=== PATIENT | female | born 1965 | race American Indian/Alaskan Native ===

== ENCOUNTER 2019-04-29 04:48 | Emergency (ER) | payer BC ==
[2019-04-29] MEDS ORDERED: dexAMETHasone 20 MG/5 ML VIAL ONE (05:09)
[2019-04-29] MEDS ORDERED: FAMOTIDINE 20 MG/2 ML INJ IV ONE ×2 (05:10→05:29)
[2019-04-29] MEDS ORDERED: diphenhydrAMINE 50 MG/ML VIAL ONE (05:11)
[2019-04-29] MEDS ORDERED: SODIUM CHLORIDE 0.45% 1000 ML 1,000 ML IV ONE (05:12)
[2019-04-29] MEDS ORDERED: dexAMETHasone 20 MG/5 ML VIAL IV ONE (05:27)
[2019-04-29] MEDS ORDERED: diphenhydrAMINE 50 MG/ML VIAL IV ONE (05:28)
--- NOTE | 2019-04-29 05:29 | Emergency Department Report ---
ED General Adult HPI - General Chief complaint: Allergic Reaction Stated complaint: LISINOPRIL REACTION Time Seen by Provider: 04/29/19 05:24 Source: patient Mode of arrival: Ambulatory Limitations: No Limitations - History of Present Illness Initial comments: The patient presents to the emergency department with a chief complaint of her upper lip swelling that started 1 day ago. Patient states she started lisinopril 2 weeks ago. Patient denies any shortness of breath, difficulty breathing, difficulty swallowing, wheezing. Patient states is never has happened to her before and denies family history of angioedema. She denies chest pain, headache, shortness of breath. Patient is able to answer questions and 4 sentences without any difficulty -: days(s) (1) Severity scale (0 -10): 0 Consistency: constant Improves with: none Worsens with: none Associated Symptoms: denies other symptoms Treatments Prior to Arrival: none - Related Data Previous Rx's Medication Instructions Recorded Last Taken Type Naproxen 500 mg PO Q12H PRN #9 tablet 04/22/19 Unknown Rx Famotidine [Pepcid] 40 mg PO QHS #7 tablet 04/29/19 Unknown Rx predniSONE [Deltasone] 20 mg PO DAILY #15 tablet 04/29/19 Unknown Rx Allergies Allergy/AdvReac Type Severity Reaction Status Date / Time No Known Allergies Allergy Verified 04/29/19 05:16 ED Review of Systems ROS: Stated complaint: LISINOPRIL REACTION Other details as noted in HPI Comment: All other systems reviewed and negative Constitutional: denies: chills, fever Eyes: denies: eye pain, eye discharge, vision change ENT: other (lip swelling). denies: ear pain, throat pain Respiratory: denies: cough, shortness of breath, wheezing Cardiovascular: denies: chest pain, palpitations Endocrine: no symptoms reported Gastrointestinal: denies: abdominal pain, nausea, diarrhea Genitourinary: denies: urgency, dysuria, discharge Musculoskeletal: denies: back pain, joint swelling, arthralgia Skin: denies: rash, lesions Neurological: denies: headache, weakness, paresthesias Psychiatric: denies: anxiety, depression Hematological/Lymphatic: denies: easy bleeding, easy bruising ED Past Medical Hx - Past Medical History Previous Medical History?: Yes Hx Hypertension: Yes - Surgical History Past Surgical History?: Yes Additional Surgical History: hernia repair, [facility], lempectomy - Social History Smoking Status: Never Smoker Substance Use Type: None - Medications Home Medications: Home Medications Medication Instructions Recorded Confirmed Last Taken Type Naproxen 500 mg PO Q12H PRN #9 tablet 04/22/19 Unknown Rx Famotidine [Pepcid] 40 mg PO QHS #7 tablet 04/29/19 Unknown Rx predniSONE [Deltasone] 20 mg PO DAILY #15 tablet 04/29/19 Unknown Rx ED Physical Exam - General Limitations: No Limitations General appearance: alert, in no apparent distress - Head Head exam: Present: atraumatic, normocephalic - Eye Eye exam: Present: normal appearance, PERRL, EOMI - ENT ENT exam: Present: mucous membranes moist, other (swelling of the patient's upper lip but no involvement of the intraoral mucosal membranes or tongue. Patient able to swallow and handle secretions without any issues) - Neck Neck exam: Present: normal inspection - Respiratory Respiratory exam: Present: normal lung sounds bilaterally. Absent: respiratory distress, wheezes - Cardiovascular Cardiovascular Exam: Present: regular rate, normal rhythm. Absent: systolic murmur, diastolic murmur, rubs, gallop - GI/Abdominal GI/Abdominal exam: Present: soft, normal bowel sounds. Absent: distended, tenderness - Extremities Exam Extremities exam: Present: normal inspection - Back Exam Back exam: Present: normal inspection - Neurological Exam Neurological exam: Present: alert, oriented X3, CN II-XII intact. Absent: motor sensory deficit - Psychiatric Psychiatric exam: Present: normal affect, normal mood - Skin Skin exam: Present: warm, dry, intact, normal color. Absent: rash ED Course Vital Signs 04/29/19 04:51 Temperature 98.3 F Pulse Rate 91 H Respiratory 18 Rate Blood Pressure 129/94 O2 Sat by Pulse 100 Oximetry ED Medical Decision Making - Medical Decision Making Patient given IV Pepcid, IV Decadron, IV fluids, IV Benadryl She instructed to stop taking lisinopril Critical care attestation.: If time is entered above; I have spent that time in minutes in the direct care of this critically ill patient, excluding procedure time. ED Disposition Clinical Impression: Angioedema Disposition: - TO HOME OR SELFCARE Is pt being admited?: No Does the pt Need Aspirin: No Condition: Stable Instructions: Angioedema (ED) Additional Instructions: These return if there is any difficulty swallowing, breathing, talking Prescriptions: Famotidine [Pepcid] 40 mg PO QHS #7 tablet predniSONE [Deltasone] 20 mg PO DAILY #15 tablet Referrals: [facility] [Provider Group] - 3-5 Days [facility] [Provider Group] - 3-5 Days BRENTON ALEX DO [Staff Physician] - 3-5 Days Time of Disposition: 05:29
[2019-04-29] MEDS ORDERED: SODIUM CHLORIDE 0.9% 1000 ML 1,000 ML IV ONE (05:30)
[2019-04-29 06:53] VITALS: BP 119/73
== END 2019-04-29 06:59 | disposition home or self-care (01) ==
LOC: ED 04:48
DX: T78.3XXA Angioneurotic edema, initial encounter (principal); I10 Essential (primary) hypertension; Z98.890 Other specified postprocedural states; Z79.899 Other long term (current) drug therapy; Z88.8 Allergy status to other drugs, medicaments and biological substances
CPT/HCPCS: 96374; 96375; 99282; J1100; J1200; J7030